=== PATIENT | male | born 1965 | race Caucasian/White ===

== ENCOUNTER 2017-09-26 17:18 | Emergency (ER) | payer OTHER ==
--- NOTE | 2017-09-26 18:13 | RAD ---
PORTABLE CHEST: FINDINGS: There is hazy opacity obscuring the right CP angle region, which could represent atelectasis or early infiltrate. The lung lundy otherwise appear clear. Vascular markings are normal. Heart and mediastinum are unr emarkable. IMPRESSION: Atelectasis and/or infiltrate in the right lung base at the costophrenic angle. POS: [facility]
== END 2017-09-26 18:30 | disposition home or self-care (01) ==
LOC: SCSER 17:18
DX: M25.511 Pain in right shoulder (principal); M54.6 Pain in thoracic spine; E78.5 Hyperlipidemia, unspecified
CPT/HCPCS: 71045; 93005